=== PATIENT | female | born 1995 | race Two or more races ===

== ENCOUNTER 2023-06-06 12:30 | Outpatient (CLI) | payer OTHER ==
[~2023-06-06] VITALS: Ht 152.4 cm; Wt 78.2 kg
[2023-06-06 12:30] VITALS: BP 112/72; O2SAT 98
[~2023-06-06 12:30] MED LIST: ALBUTEROL SULFATE 2.5MG/0.5ML INH NEB SOLN INH PRN; EPINEPHrine INJ 1 MG/ML 1ML AMP IM PRN; IRON SUCROSE 300 MG in NS 250 ML OVER 90 MIN. IV ONE; NS 1,000 ML IV SCH; diphenhydrAMINE 50MG/ML VIAL IV PRN; methylPREDNISolone 125MG 2ML VIAL IV PRN
[2023-06-06] MEDS ORDERED: PREN1CHW PO (13:34)
[2023-06-06 14:50] VITALS: BP 115/68; O2SAT 98
[2023-06-06] MEDS ORDERED: ONDANSETRON 4MG 2ML VIAL IV ONE ×2 (15:40→15:45)
[2023-06-06 16:15] VITALS: BP 110/66; O2SAT 99
== END 2023-06-06 16:50 | disposition home or self-care (01) ==
LOC: M INFU 12:30
PROVIDERS: ATTEND Obstetrics & Gynecology
DX: D50.9 Iron deficiency anemia, unspecified (principal); Z88.0 Allergy status to penicillin
CPT/HCPCS: 96365; 96367; J1756; J2405

== ENCOUNTER 2023-06-14 07:40 | Outpatient (CLI) | payer OTHER ==
[~2023-06-14] VITALS: Ht 152.4 cm; Wt 81.2 kg
[~2023-06-14 07:40] MED LIST changes: -IRON SUCROSE 300 MG in NS 250 ML OVER 90 MIN. IV ONE; -NS 1,000 ML IV SCH; +PREN1CHW PO
[2023-06-14 07:47] VITALS: BP 115/63; O2SAT 100
[2023-06-14] MEDS ORDERED: ONDANSETRON 4MG 2ML VIAL IV PRN (07:55)
[2023-06-14] MEDS ORDERED: NS 1,000 ML IV SCH (08:00)
[2023-06-14] MEDS ORDERED: IRON SUCROSE 300 MG in NS 250 ML OVER 90 MIN. IV ONE (08:00)
[2023-06-14 10:31] VITALS: BP 116/70; O2SAT 99
== END 2023-06-14 10:30 | disposition home or self-care (01) ==
LOC: M INFU 07:40 → EDUNIT# 08:00 → M INFU 10:30
PROVIDERS: ATTEND Obstetrics & Gynecology
DX: D50.9 Iron deficiency anemia, unspecified (principal); Z88.0 Allergy status to penicillin
CPT/HCPCS: 96365; J1756

== ENCOUNTER 2023-06-21 08:16 | Outpatient (CLI) | payer OTHER ==
[~2023-06-21] VITALS: Ht 154.9 cm; Wt 78.0 kg
[2023-06-21 08:30] VITALS: BP 113/71; O2SAT 100
[2023-06-21] MEDS ORDERED: NS 1,000 ML IV SCH (08:35)
[2023-06-21] MEDS ORDERED: IRON SUCROSE 300 MG in NS 250 ML OVER 90 MIN. IV ONE (08:45)
[2023-06-21 11:10] VITALS: BP 117/70; O2SAT 99
== END 2023-06-21 11:00 | disposition home or self-care (01) ==
LOC: M INFU 08:16
PROVIDERS: ATTEND Obstetrics & Gynecology
DX: D50.9 Iron deficiency anemia, unspecified (principal); Z88.0 Allergy status to penicillin
CPT/HCPCS: 96365; 96366; J1756

== ENCOUNTER 2023-06-26 07:48 | Inpatient (IN) | payer OTHER ==
[~2023-06-26] VITALS: Ht 152.4 cm; Wt 81.4 kg
[2023-06-26] VITALS (25 sets, daily range): BP systolic 95–138; BP diastolic 51–88; O2SAT 99
[~2023-06-26 07:48] MED LIST changes: -ALBUTEROL SULFATE 2.5MG/0.5ML INH NEB SOLN INH PRN; -EPINEPHrine INJ 1 MG/ML 1ML AMP IM PRN; -diphenhydrAMINE 50MG/ML VIAL IV PRN; -methylPREDNISolone 125MG 2ML VIAL IV PRN
[2023-06-26] MEDS ORDERED: HOME MED LIST COMPLETE! XX SCH (08:10)
[2023-06-26] MEDS ORDERED: LACTATED RINGER'S 1000 ML IV STA (08:33)
[2023-06-26] MEDS ORDERED: METHYLERGONOVINE MALEATE 0.2MG/ML 1ML VIAL IM PRN (08:35)
[2023-06-26] MEDS ORDERED: OXYTOCIN INJ 10UNITS/ML 1ML VIAL IM PRN (08:35)
[2023-06-26] MEDS ORDERED: OXYTOCIN DRIP 30 UNITS in IV 1 EA IV SCH (08:35)
[2023-06-26] MEDS ORDERED: OXYTOCIN INJ 10UNITS/ML 1ML VIAL IV PRN (08:35)
[2023-06-26] MEDS ORDERED: CARBOPROST TROMETHAMINE 250 MCG/ML AMP IM PRN (08:35)
[2023-06-26] MEDS ORDERED: TRANEXAMIC ACID INJection 1,000 MG in NS 100 ML IV PRN (08:35)
[2023-06-26] MEDS ORDERED: LIDOCAINE 1% MDV 20ML VIAL INFIL PRN (08:35)
[2023-06-26] MEDS ORDERED: LR 1,000 ML IV SCH (08:35)
[2023-06-26] MEDS ORDERED: INSULIN IV RATE CHANGE DOCUMENTATION ML/HR XX SCH (08:35)
[2023-06-26] MEDS ORDERED: OXYTOCIN DRIP 30 UNITS in IV 1 EA IV PRN ×6 (08:35)
[2023-06-26] MEDS: miSOPROStol 50MCG 1/2 TABLET PO PRN ×2 (09:15→15:29)
[2023-06-26 09:17] LABS: HEMATOCRIT 34.8 % (36.0-47.0); HEMOGLOBIN 10.8 g/dl (12.0-15.5); MEAN CORPUSCULAR HEMOGLOBIN 24.2 pg (27.0-33.0); PLATELET COUNT, AUTOMATED 244 10^3/uL (150-450); RED BLOOD COUNT 4.46 10^6/uL (4.00-5.40); WHITE BLOOD COUNT 7.8 10^3/uL (4.0-10.0)
[2023-06-26] MEDS: INSULIN REGULAR IN 0.9 % NACL 100 UNIT in IV 1 EA IV SCH ×4 (09:28→20:55)
[2023-06-26] MEDS: NS 1,000 ML IV SCH ×3 (09:29→23:55)
[2023-06-26] MEDS ORDERED: ePHEDrine SULFATE 25 MG/5 ML(5MG/ML) SYRINGE IVP PRN (19:45)
[2023-06-26] MEDS ORDERED: ONDANSETRON 4MG 2ML VIAL IV PRN (19:45)
[2023-06-26] MEDS ORDERED: EPIDURAL/PCA KEYS XX PRN (19:45)
[2023-06-26] MEDS ORDERED: NALOXONE INJ 0.4MG/1ML VIAL IV PRN (19:45)
[2023-06-26] MEDS ORDERED: LR 500 ML IV PRN (19:45)
[2023-06-26] MEDS ORDERED: FENTANYL/ROPIVACAINE/NACL BAG 100 ML EPIDURAL SCH (19:45)
[2023-06-26] MEDS ORDERED: diphenhydrAMINE 50MG/ML VIAL IV PRN (19:45)
[2023-06-27] VITALS (9 sets, daily range): BP systolic 115–134; BP diastolic 58–74; O2SAT 98
[2023-06-27] MEDS ORDERED: MOM 30ML SUSPENSION UDC PO PRN (00:55)
[2023-06-27] MEDS ORDERED: DOCUSATE SODIUM 100MG CAPSULE PO PRN (00:55)
[2023-06-27] MEDS ORDERED: ANUSOL HC CREAM 30GM TOP PRN (00:55)
[2023-06-27] MEDS ORDERED: RHOGAM 300MCG (1500IU) INJ IM SCH (00:55)
[2023-06-27] MEDS ORDERED: DIBUCAINE 1% OINTMENT 30GM TOP PRN (00:55)
[2023-06-27 01:01] LABS: CORD GAS ABE A -14.9; CORD GAS ABE V -7.7; CORD GAS HCO3 V 17.8 MMOL/L; CORD GAS O2 SAT A 67.6 %; CORD GAS O2 SAT V 77.1 %; CORD GAS PCO2 A 72.3 mmHg; CORD GAS PCO2 V 36.9 mmHg; CORD GAS PH A 7.013 UNITS; CORD GAS PH V 7.301 UNITS; CORD GAS PO2 A 39.8 mmHg; CORD GAS PO2 V 35.9 mmHg; CORD GAS SBC A 13.1 MMOL/L; CORD GAS SBC V 17.9 MMOL/L; CORD GAS TCO2 A 20.2 MMOL/L; CORD GAS TCO2 V 18.9 MMOL/L
[2023-06-27] MEDS: PRENATAL VITAMINS CHEWABLE TABLET PO SCH (08:03)
[2023-06-27] MEDS: IBUPROFEN 800 MG TAB PO PRN ×2 (09:15→17:22)
[2023-06-27] MEDS: ACETAMINOPHEN 500 MG TAB PO PRN ×2 (09:50→19:20)
[2023-06-28] MEDS: IBUPROFEN 800 MG TAB PO PRN (02:09)
[2023-06-28 06:00] VITALS: BP 131/77; O2SAT 97
[2023-06-28] MEDS: ACETAMINOPHEN 500 MG TAB PO PRN (07:37)
[2023-06-28] MEDS: PRENATAL VITAMINS CHEWABLE TABLET PO SCH (07:37)
[2023-06-29] MEDS ORDERED: MEASLES,MUMPS,RUBELLA VACCINE INJ (MMR-II) SC.IMMUN ONE (09:00)
== END 2023-06-28 10:10 | disposition home or self-care (01) | DRG 807 ==
LOC: M LDI 07:48 → M OBS 06-27 02:15
PROVIDERS: ADMIT Obstetrics & Gynecology; ATTEND Obstetrics & Gynecology
PROC: 3E0P7GC Introduction of Other Therapeutic Substance into Female Reproductive, Via Natural or Artificial Opening (ICD-10-PCS; 2023-06-26)
PROC: 10907ZC Drainage of Amniotic Fluid, Therapeutic from Products of Conception, Via Natural or Artificial Opening (ICD-10-PCS; 2023-06-26)
PROC: 10E0XZZ Delivery of Products of Conception, External Approach (ICD-10-PCS; principal; 2023-06-27)
DX: O24.420 Gestational diabetes mellitus in childbirth, diet controlled (principal); Z37.0 Single live birth; Z3A.39 39 weeks gestation of pregnancy; O69.81X0 Labor and delivery complicated by cord around neck, without compression, not applicable or unspecified